=== PATIENT | male | born 2000 | race Caucasian/White ===

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

== ENCOUNTER 2019-02-02 04:12 | Emergency (ER) | payer BC, OTHER ==
--- NOTE | 2019-02-02 05:13 | CT ---
EXAM: CT Head Without Intravenous Contrast CLINICAL HISTORY: ITS.REASON CT Reason: head injury TECHNIQUE: Axial computed tomography images of the head/brain without intravenous contrast. CTDI is 49 mGy and DLP is 1119 mGy-cm. This CT exam was performed using one or more of the following dose reduction techniques: automated exposure control, adjustment of the mA and/or kV according to patient size, and/or use of iterative reconstruction technique. COMPARISON: No relevant prior studies available. FINDINGS: Brain: No hemorrhage or mass effect. Ventricles: No hydrocephalus. Bones/joints: Unremarkable. Soft tissues: Unremarkable. Sinuses: Completely opacified right maxillary sinus. Air-fluid level in the left maxillary sinus. Mild opacification of the right anterior ethmoid and right frontal sinus. Mastoid air cells: Clear. IMPRESSION: No acute hemorrhage, hydrocephalus, or mass effect. Severe maxillary sinus disease.
[2019-02-02] MEDS ORDERED: PENICILLIN VK 500MG STARTER 4 TAB BTL PO STA (06:28)
--- NOTE | 2019-02-02 06:35 | ED ---
ENT HPI - General Chief complaint: ENT Stated complaint: Head Injury/Sore Throat Time Seen by Provider: 02/02/19 04:37 Source: patient Mode of arrival: ambulatory Limitations: no limitations - History of Present Illness MD complaint: tooth pain, trauma/injury Onset/Timin -: days(s) Location: throat Severity: moderate Quality: burning, aching Consistency: constant Improves with: none Worsens with: swallowing Associated Symptoms: sore throat - Related Data Previous Rx's Medication Instructions Recorded Penicillin V Potassium [Pen Vee K] 500 mg PO QID #28 tablet 02/02/19 Allergies Allergy/AdvReac Type Severity Reaction Status Date / Time No Known Allergies Allergy Verified 02/02/19 04:20 Review of Systems ROS Statement: Those systems with pertinent positive or pertinent negative responses have been documented in the HPI. ROS Other: All systems not noted in ROS Statement are negative. Constitutional: Reports: fever. Denies: chills Eyes: Denies: eye pain ENT: Reports: throat pain Respiratory: Denies: cough, dyspnea Cardiovascular: Denies: chest pain, palpitations Gastrointestinal: Denies: abdominal pain, vomiting, diarrhea Genitourinary: Denies: dysuria, hematuria Musculoskeletal: Denies: back pain Skin: Denies: rash Neurological: Reports: headache. Denies: weakness, numbness Past Medical History Past Medical History: No Reported History History of Any Multi-Drug Resistant Organisms: None Reported Past Surgical History: No Surgical Hx Reported Past Psychological History: No Psychological Hx Reported Smoking Status: Current every day smoker Past Alcohol Use History: Rare Past Drug Use History: Marijuana General Exam Limitations: no limitations General appearance: alert, in no apparent distress Head exam: Present: atraumatic, normocephalic Eye exam: Present: normal appearance, PERRL, EOMI. Absent: scleral icterus, conjunctival injection ENT exam: Present: mucous membranes moist, other (there is injection of the pharynx. Moderate inflammation of the tonsils. Uvula is midline without edema. No exudate) Neck exam: Present: normal inspection, full ROM, lymphadenopathy. Absent: tenderness, meningismus Respiratory exam: Present: normal lung sounds bilaterally. Absent: respiratory distress, wheezes, rales, rhonchi, stridor Cardiovascular Exam: Present: regular rate, normal rhythm, normal heart sounds. Absent: systolic murmur, diastolic murmur, rubs, gallop GI/Abdominal exam: Present: soft. Absent: distended, tenderness, guarding, rigid, mass Extremities exam: Present: normal inspection, normal capillary refill. Absent: pedal edema, calf tenderness Back exam: Present: normal inspection. Absent: CVA tenderness (R), CVA tenderness (L) Neurological exam: Present: alert Skin exam: Present: warm, dry, intact, normal color. Absent: rash Course Vital Signs 02/02/19 04:18 Temperature 102.5 F H Pulse Rate 105 H Respiratory 20 Rate Blood Pressure 114/65 O2 Sat by Pulse 96 Oximetry Medical Decision Making - Lab Data Lab Results 02/02/19 Range/Units 05:11 Group A Strep Rapid Positive A (Negative) Disposition Clinical Impression: Strep pharyngitis, Head injury Disposition: HOME SELF-CARE Condition: Good Instructions (If sedation given, give patient instructions): Strep Throat (ED), Head Injury (ED) Prescriptions: Penicillin V Potassium [Pen Vee K] 500 mg PO QID #28 tablet Is patient prescribed a controlled substance at d/c from ED?: No Referrals: None,Stated [Primary Care Provider] - 1-2 days
[2019-02-02 06:36] VITALS: BP 135/76; PULSE 90; RESP 18; TEMP 99.8
== END 2019-02-02 06:36 | disposition home or self-care (01) ==
LOC: EC 04:12
DX: S09.90XA Unspecified injury of head, initial encounter (principal); J02.0 Streptococcal pharyngitis; F17.200 Nicotine dependence, unspecified, uncomplicated; K08.89 Other specified disorders of teeth and supporting structures; X58.XXXA Exposure to other specified factors, initial encounter; Y93.62 Activity, american flag or touch football
CPT/HCPCS: 70450; 87430; 99284

== ENCOUNTER 2019-07-31 18:57 | Emergency (ER) | payer BC, OTHER ==
--- NOTE | 2019-07-31 19:19 | XR ---
EXAMINATION TYPE: XR chest 2V DATE OF EXAM: 07/31/2019 COMPARISON: 06/25/2013 INDICATION: Chest pain, substernal TECHNIQUE: Frontal and lateral views of the chest are obtained. FINDINGS: The heart size is normal. The pulmonary vasculature is normal. The lungs are clear. IMPRESSION: 1. No acute pulmonary process.
[2019-07-31] MEDS ORDERED: SODIUM CHLORIDE 0.9% 1,000 ML IV STA (19:55)
--- NOTE | 2019-07-31 19:55 | ED ---
Chest Pain HPI - General Chief Complaint: Chest Pain Stated Complaint: Chest Pain Time Seen by Provider: 07/31/19 18:59 Source: patient, RN notes reviewed, old records reviewed Mode of arrival: EMS Limitations: no limitations - History of Present Illness Initial Comments: is a healthy 19-year-old male presents today for evaluation of chest pain. Nonspecific anterior shortness breath and anxiety. Patient presents from urgent care for evaluation. No travel history no sick contacts. no Cough congestion or trauma. Patient denies history of similar symptoms. No significant family history of heart disease. No high blood pressure or cholesterol no diabetes MD Complaint: chest pain -: hour(s) Onset: during rest, during exertion Pain Location: substernal, left chest Pain Radiation: LUE Severity: moderate Severity scale (1-10): 7 Quality: sharp Consistency: constant Improves With: nothing Worsens With: nothing Context: recent illness Anginal Symptoms: nausea, dyspnea Treatments Prior to Arrival: none - Related Data Home Medications Medication Instructions Recorded Confirmed No Known Home Medications 07/31/19 07/31/19 Allergies Allergy/AdvReac Type Severity Reaction Status Date / Time No Known Allergies Allergy Verified 07/31/19 20:14 Review of Systems ROS Statement: Those systems with pertinent positive or pertinent negative responses have been documented in the HPI. ROS Other: All systems not noted in ROS Statement are negative. EKG Findings - EKG Comments: EKG Findings:: EKG shows sinus rhythm of 76, MT 136, QRS 94, QTc 416 Past Medical History Past Medical History: No Reported History History of Any Multi-Drug Resistant Organisms: None Reported Past Surgical History: No Surgical Hx Reported Past Psychological History: No Psychological Hx Reported Smoking Status: Former smoker Past Alcohol Use History: Rare Past Drug Use History: Marijuana General Exam Limitations: no limitations General appearance: alert, in no apparent distress Head exam: Present: atraumatic, normocephalic, normal inspection Eye exam: Present: normal appearance, PERRL, EOMI. Absent: scleral icterus, conjunctival injection, periorbital swelling ENT exam: Present: normal exam, mucous membranes moist Neck exam: Present: normal inspection. Absent: tenderness, meningismus, lymphadenopathy Respiratory exam: Present: normal lung sounds bilaterally. Absent: respiratory distress, wheezes, rales, rhonchi, stridor Cardiovascular Exam: Present: regular rate, normal rhythm, normal heart sounds. Absent: systolic murmur, diastolic murmur, rubs, gallop, clicks GI/Abdominal exam: Present: soft, normal bowel sounds. Absent: distended, tenderness, guarding, rebound, rigid Extremities exam: Present: normal inspection, full ROM, normal capillary refill. Absent: tenderness, pedal edema, joint swelling, calf tenderness Back exam: Present: normal inspection Neurological exam: Present: alert, oriented X3, CN II-XII intact Psychiatric exam: Present: normal affect, normal mood Skin exam: Present: warm, dry, intact, normal color. Absent: rash Course Vital Signs 07/31/19 07/31/19 19:03 20:06 Temperature 99.2 F 97.5 F L Pulse Rate 88 61 Respiratory 18 20 Rate Blood Pressure 138/74 117/72 O2 Sat by Pulse 99 Oximetry - Reevaluation(s) Reevaluation #1: Medical records reviewed Patient's in no distress Chest Pain MDM - MDM 19 male to the ER with nonspecific atypical chest pain. Patient has normal studies here in the ER and can be discharged home feeling good with discharge Disposition Clinical Impression: Atypical chest pain, Chest pain Disposition: HOME SELF-CARE Condition: Good Instructions (If sedation given, give patient instructions): Chest Pain (ED), Costochondritis (ED) Is patient prescribed a controlled substance at d/c from ED?: No Referrals: None,Stated [Primary Care Provider] - 1-2 days
[2019-07-31 20:10] VITALS: BP 117/72; PULSE 61; RESP 20; TEMP 97.5
[2019-07-31 20:15] LABS: Basophils % (A) 0 %; Eosinophils # (A) 0.2 k/uL (0-0.7); Eosinophils % (A) 2 %; HCT 43.1 % (39.0-53.0); HGB 14.2 gm/dL (13.0-17.5); Lymphocytes # (A) 1.5 k/uL (1.0-4.8); Lymphocytes % (A) 20 %; MCH 28.6 pg (25.0-35.0); MCHC 32.9 g/dL (31.0-37.0); MCV 86.8 fL (80.0-100.0); Mean Platelet Volume 8.1; Monocytes # (A) 0.4 k/uL (0-1.0); Monocytes % (A) 5 %; Neutrophils # (A) 5.2 k/uL (1.3-7.7); Neutrophils % (A) 70 %; Platelet Count 298 k/uL (150-450); RBC 4.97 m/uL (4.30-5.90); RDW 12.4 % (11.5-15.5); WBC 7.3 k/uL (4.0-11.0)
[2019-07-31 20:25] LABS: ALT 12 U/L (4-49); AST 18 U/L (17-59); African American GFR (CKD) >90 (>60 ml/min/1.73 sqM); Albumin 4.6 g/dL (3.5-5.0); Alkaline Phosphatase 59 U/L (38-126); Anion Gap 4 mmol/L; Blood Urea Nitrogen 15 mg/dL (9-20); Calcium 9.6 mg/dL (8.4-10.2); Carbon Dioxide 28 mmol/L (22-30); Chloride 105 mmol/L (98-107); Glucose 90 mg/dL (74-99); Magnesium 1.9 mg/dL (1.6-2.3); Non-African American GFR(CKD) >90 (>60 ml/min/1.73 sqM); Potassium 4.3 mmol/L (3.5-5.1); Sodium 137 mmol/L (137-145); Total Bilirubin 0.5 mg/dL (0.2-1.3); Total Protein 7.7 g/dL (6.3-8.2)
[2019-07-31 20:28] LABS: D-Dimer <0.17 mg/L FEU (<0.60); Partial Thromboplastin Time 24.9 sec (22.0-30.0); Prothrombin Time 10.8 sec (9.0-12.0)
== END 2019-07-31 20:57 | disposition home or self-care (01) ==
LOC: EC 18:57
DX: R07.89 Other chest pain (principal); Z87.891 Personal history of nicotine dependence
CPT/HCPCS: 36415; 71046; 80053; 83690; 83735; 83880; 84484; 85025; 85379; 85610; 85730; 93005; 99285

== ENCOUNTER 2019-08-13 21:35 | Emergency (ER) | payer BC, OTHER ==
[2019-08-13 21:47] VITALS: RESP 18; TEMP 98
[2019-08-13] MEDS ORDERED: SODIUM CHLORIDE 0.9% 1,000 ML IV STA (22:25)
[2019-08-13] MEDS ORDERED: DICYCLOMINE 20 MG TAB PO STA (22:25)
--- NOTE | 2019-08-13 22:32 | ED ---
Abdominal Pain HPI - General Chief Complaint: Abdominal Pain Stated Complaint: Abd Pain Time Seen by Provider: 08/13/19 22:01 Source: patient Mode of arrival: ambulatory Limitations: no limitations - History of Present Illness Initial Comments: Patient is a 19-year-old male presenting to the emergency Department with complaints of abdominal pain has been going on for 1 week. He states he feels like it is getting worse and he decided to be seen today. He denies any recent fever, chills. He denies nausea, vomiting, diarrhea. He states she's been h aving intermittent constipation. He denies any urinary complaints. He denies any abdominal surgeries. He states he's been taking ibuprofen for the pain but feels like it is getting worse. He denies any coughing, shortness of breath, chest pain. He has no other complaints at this time. Upon arrival to the ER, his vitals are stable. - Related Data Previous Rx's Medication Instructions Recorded Dicyclomine [Bentyl] 20 mg PO QID PRN #20 tablet 08/13/19 Allergies Allergy/AdvReac Type Severity Reaction Status Date / Time No Known Allergies Allergy Verified 08/13/19 21:47 Review of Systems ROS Statement: Those systems with pertinent positive or pertinent negative responses have been documented in the HPI. ROS Other: All systems not noted in ROS Statement are negative. Past Medical History Past Medical History: No Reported History History of Any Multi-Drug Resistant Organisms: None Reported Past Surgical History: No Surgical Hx Reported Past Psychological History: No Psychological Hx Reported Smoking Status: Former smoker Past Alcohol Use History: Rare Past Drug Use History: Marijuana General Exam - General Exam Comments Initial Comments: GENERAL: Well-appearing, well-nourished and in no acute distress. HEAD: Atraumatic, normocephalic. EYES: Pupils equal round and reactive to light, extraocular movements intact, sclera anicteric, conjunctiva are normal. ENT: TMs normal, nares patent, oropharynx clear without exudates. Moist mucous membranes. NECK: Normal range of motion, supple without lymphadenopathy or JVD. LUNGS: Breath sounds clear to auscultation bilaterally and equal. No wheezes rales or rhonchi. HEART: Regular rate and rhythm without murmurs, rubs or gallops. ABDOMEN: Very mild generalized abdominal pain with palpation. Soft, normoactive bowel sounds. No guarding, no rebound. No masses appreciated. : Deferred EXTREMITIES: Normal range of motion, no pitting or edema. No clubbing or cyanosis. NEUROLOGICAL: Normal speech, normal gait. PSYCH: Normal mood, normal affect. SKIN: Warm, Dry, normal turgor, no rashes or lesions noted. Limitations: no limitations Course Vital Signs 08/13/19 08/13/19 21:44 23:46 Temperature 98.0 F Pulse Rate 81 66 Respiratory 18 18 Rate Blood Pressure 126/77 106/79 O2 Sat by Pulse 99 98 Oximetry Medical Decision Making - Medical Decision Making Patient is a 19-year-old healthy male here for generalized abdominal discomfort times one week. Vitals are stable. Exam reveals generalized abdominal tenderness. KUB shows nonacute abdomen. Lab work is unremarkable. Urine shows no signs of infection. Patient did receive fluids and Bentall he states he feels improvement. He is stable for discharge. He can follow up with his PCP. He is in agreement this plan of care. Return parameters were discussed with the patient and he verbalized understanding. Case discussed with Dr. Maloney. - Lab Data Result diagrams: 08/13/19 23:00 08/13/19 23:00 Lab Results 08/13/19 08/13/19 08/13/19 Range/Units 23:00 23:00 23:00 WBC 7.1 (4.0-11.0) k/uL RBC 4.79 (4.30-5.90) m/uL Hgb 13.7 (13.0-17.5) gm/dL Hct 41.9 (39.0-53.0) % MCV 87.6 (80.0-100.0) fL MCH 28.5 (25.0-35.0) pg MCHC 32.6 (31.0-37.0) g/dL RDW 12.3 (11.5-15.5) % Plt Count 264 (150-450) k/uL Neutrophils % 65 % Lymphocytes % 25 % Monocytes % 5 % Eosinophils % 2 % Basophils % 1 % Neutrophils # 4.6 (1.3-7.7) k/uL Lymphocytes # 1.8 (1.0-4.8) k/uL Monocytes # 0.4 (0-1.0) k/uL Eosinophils # 0.2 (0-0.7) k/uL Basophils # 0.0 (0-0.2) k/uL Sodium 137 (137-145) mmol/L Potassium 4.5 (3.5-5.1) mmol/L Chloride 103 (98-107) mmol/L Carbon Dioxide 27 (22-30) mmol/L Anion Gap 7 mmol/L BUN 17 (9-20) mg/dL Creatinine 0.77 (0.66-1.25) mg/dL Est GFR (CKD-EPI)AfAm >90 (>60 ml/min/1.73 sqM) Est GFR (CKD-EPI)NonAf >90 (>60 ml/min/1.73 sqM) Glucose 94 (74-99) mg/dL Calcium 9.5 (8.4-10.2) mg/dL Total Bilirubin 0.3 (0.2-1.3) mg/dL AST 15 L (17-59) U/L ALT 11 (4-49) U/L Alkaline Phosphatase 51 (38-126) U/L Total Protein 7.6 (6.3-8.2) g/dL Albumin 4.5 (3.5-5.0) g/dL Urine Color Yellow Urine Appearance Cloudy (Clear) Urine pH 7.5 (5.0-8.0) Ur Specific [place] 1.018 (1.001-1.035) Urine Protein Negative (Negative) Urine Glucose (UA) Negative (Negative) Urine Ketones Negative (Negative) Urine Blood Negative (Negative) Urine Nitrite Negative (Negative) Urine Bilirubin Negative (Negative) Urine Urobilinogen <2.0 (<2.0) mg/dL Ur Leukocyte Esterase Negative (Negative) Urine WBC 1 (0-5) /hpf Amorphous Sediment Rare H (None) /hpf Urine Bacteria Rare H (None) /hpf Urine Mucus Rare H (None) /hpf Disposition Clinical Impression: Abdominal pain Disposition: HOME SELF-CARE Condition: Stable Instructions (If sedation given, give patient instructions): Abdominal Pain (ED) Additional Instructions: Please return to the Emergency Department if symptoms worsen or any other concerns. May take Bentyl as needed for abdominal discomfort. Follow up with PCP. Prescriptions: Dicyclomine [Bentyl] 20 mg PO QID PRN #20 tablet PRN Reason: Abdominal Distention Is patient prescribed a controlled substance at d/c from ED?: No Referrals: None,Stated [Primary Care Provider] - 1-2 days
--- NOTE | 2019-08-13 22:49 | XR ---
EXAMINATION TYPE: XR KUB DATE OF EXAM: 08/13/2019 10:36 PM CLINICAL HISTORY: Generalized abdominal pain. TECHNIQUE: Two Upright KUB images of the abdomen are obtained. COMPARISON: None. FINDINGS: Scattered gas is seen in non-distended stomach and scattered small bowel loops. Gas and fec al material is seen in non-distended colon. There is no visceromegaly, pneumoperitoneum, or abnormal calcification appreciated. The lung bases are clear. 6 lumbar type vertebra incidentally noted. IMPRESSION: Overall nonobstructive bowel gas pattern.
[2019-08-13 23:15] LABS: Basophils % (A) 1 %; Eosinophils # (A) 0.2 k/uL (0-0.7); Eosinophils % (A) 2 %; HCT 41.9 % (39.0-53.0); HGB 13.7 gm/dL (13.0-17.5); Lymphocytes # (A) 1.8 k/uL (1.0-4.8); Lymphocytes % (A) 25 %; MCH 28.5 pg (25.0-35.0); MCHC 32.6 g/dL (31.0-37.0); MCV 87.6 fL (80.0-100.0); Mean Platelet Volume 7.7; Monocytes # (A) 0.4 k/uL (0-1.0); Monocytes % (A) 5 %; Neutrophils # (A) 4.6 k/uL (1.3-7.7); Neutrophils % (A) 65 %; Platelet Count 264 k/uL (150-450); RBC 4.79 m/uL (4.30-5.90); RDW 12.3 % (11.5-15.5); WBC 7.1 k/uL (4.0-11.0)
[2019-08-13 23:21] LABS: ALT 11 U/L (4-49); AST 15 U/L (17-59); African American GFR (CKD) >90 (>60 ml/min/1.73 sqM); Albumin 4.5 g/dL (3.5-5.0); Alkaline Phosphatase 51 U/L (38-126); Anion Gap 7 mmol/L; Blood Urea Nitrogen 17 mg/dL (9-20); Calcium 9.5 mg/dL (8.4-10.2); Carbon Dioxide 27 mmol/L (22-30); Chloride 103 mmol/L (98-107); Glucose 94 mg/dL (74-99); Non-African American GFR(CKD) >90 (>60 ml/min/1.73 sqM); Potassium 4.5 mmol/L (3.5-5.1); Sodium 137 mmol/L (137-145); Total Bilirubin 0.3 mg/dL (0.2-1.3); Total Protein 7.6 g/dL (6.3-8.2)
[2019-08-13 23:22] LABS: Amorphous Sediment,Urine Rare /hpf; Appearance,Urine Cloudy (Clear); Bacteria,Urine Rare /hpf; Bilirubin,Urine Negative (Negative); Blood,Urine Negative (Negative); Color,Urine Yellow; Glucose,Urine (UA) Negative (Negative); Ketones,Urine Negative (Negative); Leukocyte Esterase,Urine Negative (Negative); Mucus,Urine Rare /hpf; Nitrite,Urine Negative (Negative); PH, Urine 7.5 (5.0-8.0); Protein,Urine Negative (Negative); Specific Gravity,Urine 1.018 (1.001-1.035); Urobilinogen,Urine <2.0 mg/dL (<2.0); WBC,Urine 1 /hpf (0-5)
[2019-08-14 00:07] VITALS: BP 106/79; PULSE 66
== END 2019-08-13 23:46 | disposition home or self-care (01) ==
LOC: EC 21:35
DX: R10.9 Unspecified abdominal pain (principal); R10.817 Generalized abdominal tenderness; Z87.891 Personal history of nicotine dependence
CPT/HCPCS: 36415; 74018; 80053; 81001; 85025; 99284

== ENCOUNTER 2020-12-06 17:46 | Emergency (ER) | payer OTHER ==
[2020-12-06 18:40] VITALS: BP 119/71; PULSE 81; RESP 18; TEMP 98.6
[2020-12-06] MEDS ORDERED: HYDROcodone/APAP 5-325MG 1 EACH TAB PO STA (19:26)
--- NOTE | 2020-12-06 20:14 | XR ---
EXAMINATION TYPE: XR chest 2V DATE OF EXAM: 12/06/2020 COMPARISON: 07/31/2019 HISTORY: Chest pain TECHNIQUE: 2 views FINDINGS: Heart and mediastinum are normal. Lungs are clear. Diaphragm is normal. Bony thorax is inta ct. IMPRESSION: Normal chest. No change.
--- NOTE | 2020-12-06 20:15 | XR ---
EXAMINATION TYPE: XR KUB DATE OF EXAM: 12/06/2020 COMPARISON: 08/13/2019 HISTORY: Pain TECHNIQUE: 2 views upright FINDINGS: Gas pattern is normal. There is no sign of intestinal obstruction or pneumoperitoneum. Feca l pattern is normal. Lung bases are clear. There no pathologic calcifications. IMPRESSION: Nonacute abdomen. No change.
--- NOTE | 2020-12-06 20:21 | ED ---
Abdominal Pain HPI - General Source: patient, family, RN notes reviewed Mode of arrival: ambulatory Limitations: no limitations <Luis Cardoza - Last Filed: 12/06/20 20:34> <Courtney Adams - Last Filed: 12/10/20 14:36> - General Chief Complaint: Abdominal Pain Stated Complaint: back pain Time Seen by Provider: 12/06/20 19:03 - History of Present Illness Initial Comments: This a 20-year-old male presents emergency department with chief complaint of left-sided abdominal, flank, rib pain. Patient states that hurts to deep inspiration twisting bending denies any direct trauma but states that it feels like he pulled a muscle. No difficulty urinating no nausea vomiting no other complaints. (Luis Cardoza) - Related Data Previous Rx's Medication Instructions Recorded Cyclobenzaprine [Flexeril] 10 mg PO TID PRN #15 tab 12/06/20 Ibuprofen [Motrin] 600 mg PO Q8HR PRN #20 tab 12/06/20 Allergies Allergy/AdvReac Type Severity Reaction Status Date / Time No Known Allergies Allergy Verified 12/06/20 20:17 Review of Systems ROS Other: All systems not noted in ROS Statement are negative. <Luis Cardoza - Last Filed: 12/06/20 20:34> ROS Other: All systems not noted in ROS Statement are negative. <Courtney Adams - Last Filed: 12/10/20 14:36> ROS Statement: Those systems with pertinent positive or pertinent negative responses have been documented in the HPI. Past Medical History Past Medical History: No Reported History History of Any Multi-Drug Resistant Organisms: None Reported Past Surgical History: No Surgical Hx Reported Past Psychological History: No Psychological Hx Reported Past Alcohol Use History: Rare Past Drug Use History: Marijuana <Luis Cardoza - Last Filed: 12/06/20 20:34> General Exam General appearance: alert, in no apparent distress Head exam: Present: atraumatic, normocephalic, normal inspection Eye exam: Present: normal appearance, PERRL, EOMI. Absent: scleral icterus, conjunctival injection, periorbital swelling ENT exam: Present: normal exam, mucous membranes moist Neck exam: Present: normal inspection, full ROM. Absent: tenderness, meningismus, lymphadenopathy Respiratory exam: Present: normal lung sounds bilaterally, chest wall tenderness. Absent: respiratory distress, wheezes, rales, rhonchi, stridor Cardiovascular Exam: Present: regular rate, normal rhythm, normal heart sounds. Absent: systolic murmur, diastolic murmur, rubs, gallop, clicks GI/Abdominal exam: Present: soft, normal bowel sounds. Absent: distended, tenderness, guarding, rebound, rigid <Luis Cardoza - Last Filed: 12/06/20 20:34> Course Vital Signs 12/06/20 18:37 Temperature 98.6 F Pulse Rate 81 Respiratory 18 Rate Blood Pressure 119/71 O2 Sat by Pulse 97 Oximetry Medical Decision Making <Luis Cardoza - Last Filed: 12/06/20 20:34> <Courtney Adams - Last Filed: 12/10/20 14:36> - Medical Decision Making X-rays urinalysis unremarkable. Patient most likely has left flank strain. Patient be discharged discharged return parameters discussed. (Luis Cardoza) I was available for consultation in the emergency department. The history and physical exam were done by the midlevel provider. I was consulted for this patients care. I reviewed the case with the midlevel provider and based on their presentation of the patient, I agree with the assessment, medical decision making and plan of care as documented. Chart was dictated using [id number] dictation software. Attempts were made to correct any dictation errors however some typographical errors may persist. Patient was seen during a national state of emergency due to the Covid-19 pandemic. (Courtney Adams) - Lab Data Lab Results 12/06/20 Range/Units 20:23 Urine Color Yellow Urine Appearance Clear (Clear) Urine pH 5.5 (5.0-8.0) Ur Specific [place] 1.026 (1.001-1.035) Urine Protein Negative (Negative) Urine Glucose (UA) Negative (Negative) Urine Ketones Negative (Negative) Urine Blood Negative (Negative) Urine Nitrite Negative (Negative) Urine Bilirubin Negative (Negative) Urine Urobilinogen <2.0 (<2.0) mg/dL Ur Leukocyte Esterase Negative (Negative) Disposition Is patient prescribed a controlled substance at d/c from ED?: No Time of Disposition: 20:36 <Luis Cardoza - Last Filed: 12/06/20 20:34> <Courtney Adams - Last Filed: 12/10/20 14:36> Clinical Impression: Left flank pain, Muscle strain of chest wall Disposition: HOME SELF-CARE Condition: Stable Instructions (If sedation given, give patient instructions): Flank Pain (ED) Additional Instructions: Please return to the Emergency Department if symptoms worsen or any other concerns. Prescriptions: Cyclobenzaprine [Flexeril] 10 mg PO TID PRN #15 tab PRN Reason: Muscle Spasm Ibuprofen [Motrin] 600 mg PO Q8HR PRN #20 tab PRN Reason: Pain Referrals: None,Stated [Primary Care Provider] - 1-2 days
[2020-12-06 20:32] LABS: Appearance,Urine Clear (Clear); Bilirubin,Urine Negative (Negative); Blood,Urine Negative (Negative); Color,Urine Yellow; Glucose,Urine (UA) Negative (Negative); Ketones,Urine Negative (Negative); Leukocyte Esterase,Urine Negative (Negative); Nitrite,Urine Negative (Negative); PH, Urine 5.5 (5.0-8.0); Protein,Urine Negative (Negative); Specific Gravity,Urine 1.026 (1.001-1.035); Urobilinogen,Urine <2.0 mg/dL (<2.0)
[2020-12-06] MEDS ORDERED: ACET/COD 300 MG/30 MG STARTER PACK 6 TAB BTL PO STA (20:36)
== END 2020-12-06 20:52 | disposition home or self-care (01) ==
LOC: EC 17:46
DX: S29.011A Strain of muscle and tendon of front wall of thorax, initial encounter (principal); R10.9 Unspecified abdominal pain; X50.1XXA Overexertion from prolonged static or awkward postures, initial encounter
CPT/HCPCS: 71046; 74018; 81003; 99284

== ENCOUNTER 2021-02-26 03:59 | Emergency (ER) | payer OTHER ==
[2021-02-26 04:04] VITALS: BP 127/81; PULSE 108; RESP 24; TEMP 97.8
[2021-02-26] MEDS ORDERED: SODIUM CHLORIDE 0.9% 500 ML 500 ML IV STA (04:34)
[2021-02-26] MEDS ORDERED: diphenhydrAMINE 50 MG/ML 1 ML VIAL IVP STA (04:34)
[2021-02-26] MEDS ORDERED: METOCLOPRAMIDE 5 MG/ML 2 ML VIAL IVP STA (04:34)
--- NOTE | 2021-02-26 04:38 | ED ---
Headache HPI - General Chief Complaint: Headache Stated Complaint: Headache Time Seen by Provider: 02/26/21 04:18 Mode of arrival: ambulatory Limitations: no limitations - History of Present Illness MD Complaint: headache Onset/Timin -: hour(s) Onset Description: gradual Location: right, frontal Severity: severe Quality: throbbing, worst headache of life Consistency: constant Improves With: nothing Worsens With: none Context: occurred at rest Treatments Prior to Arrival: none - Related Data Previous Rx's Medication Instructions Recorded Cyclobenzaprine [Flexeril] 10 mg PO TID PRN #15 tab 12/06/20 Ibuprofen [Motrin] 600 mg PO Q8HR PRN #20 tab 12/06/20 Amoxicillin/Potassium Clav 1 tab PO Q12HR 1 Days #14 tab 02/26/21 [Augmentin 875-125 Tablet] Fluticasone Nasal [place] [Flonase 1 spray EA NOSTRIL DAILY #16 gm 02/26/21 Nasal [place]] Allergies Allergy/AdvReac Type Severity Reaction Status Date / Time No Known Allergies Allergy Verified 02/26/21 04:04 Review of Systems ROS Statement: Those systems with pertinent positive or pertinent negative responses have been documented in the HPI. ROS Other: All systems not noted in ROS Statement are negative. Constitutional: Denies: fever, chills, weakness Eyes: Denies: eye pain, vision change Respiratory: Denies: cough, dyspnea Cardiovascular: Denies: chest pain, syncope Gastrointestinal: Reports: nausea. Denies: abdominal pain, vomiting Musculoskeletal: Denies: back pain Skin: Denies: rash Neurological: Reports: headache. Denies: weakness, numbness, confusion Past Medical History Past Medical History: No Reported History History of Any Multi-Drug Resistant Organisms: None Reported Past Surgical History: No Surgical Hx Reported Past Psychological History: No Psychological Hx Reported Smoking Status: Former smoker Past Alcohol Use History: Rare Past Drug Use History: Marijuana General Exam Limitations: no limitations General appearance: alert, in no apparent distress Head exam: Present: atraumatic, normocephalic Eye exam: Present: normal appearance, PERRL, EOMI. Absent: scleral icterus, conjunctival injection, nystagmus ENT exam: Present: normal oropharynx, mucous membranes moist Neck exam: Present: normal inspection, full ROM. Absent: meningismus Respiratory exam: Present: normal lung sounds bilaterally. Absent: respiratory distress, wheezes, rales, rhonchi, stridor Cardiovascular Exam: Present: regular rate, normal rhythm, normal heart sounds. Absent: systolic murmur, diastolic murmur, rubs, gallop Neurological exam: Present: alert, oriented X3, CN II-XII intact. Absent: motor sensory deficit Skin exam: Present: warm, dry, intact, normal color. Absent: rash Course Vital Signs 02/26/21 04:00 Temperature 97.8 F Pulse Rate 108 H Respiratory 24 Rate Blood Pressure 127/81 O2 Sat by Pulse 97 Oximetry Medical Decision Making - Lab Data Lab Results 02/26/21 Range/Units 04:10 Coronavirus (PCR) Not Detected (Not Detectd) Disposition Clinical Impression: Sinusitis Disposition: HOME SELF-CARE Condition: Good Instructions (If sedation given, give patient instructions): Sinusitis (ED) Prescriptions: Amoxicillin/Potassium Clav [Augmentin 875-125 Tablet] 1 tab PO Q12HR 1 Days #14 tab Fluticasone Nasal [place] [Flonase Nasal [place]] 1 spray EA NOSTRIL DAILY #16 gm Is patient prescribed a controlled substance at d/c from ED?: No Referrals: None,Stated [Primary Care Provider] - 1-2 days
--- NOTE | 2021-02-26 05:16 | CT ---
EXAMINATION TYPE: CT brain wo con DATE OF EXAM: 02/26/2021 COMPARISON: 02/02/2019 HISTORY: headache CT DLP: 1141.4 mGycm Automated exposure control for dose reduction was used. Ventricles have normal size. There is no mass effect nor midline shift. There is no sign of intracran ial hemorrhage. The calvarium is intact. There is mucosal thickening in the maxillary and sphenoid et hmoid and frontal sinuses. Skull base is intact. IMPRESSION: Negative CT scan of the brain. No change compared to old exam. Pansinusitis. Sinusitis slightly worse than old exam.
[2021-02-26] MEDS ORDERED: KETOROLAC 15 MG/ML 1 ML VIAL IVP STA (05:21)
== END 2021-02-26 06:12 | disposition home or self-care (01) ==
LOC: EC 03:59
DX: J32.9 Chronic sinusitis, unspecified (principal); Z20.822 Contact with and (suspected) exposure to COVID-19; Z87.891 Personal history of nicotine dependence
CPT/HCPCS: 87635; 70450; 99284; 96374; 96375; J1200; J2765; J1885

== ENCOUNTER 2023-08-29 15:40 | Emergency (ER) | payer OTHER ==
--- NOTE | 2023-08-29 15:52 | ED ---
Wound/Laceration HPI - General Source: patient, RN notes reviewed Mode of arrival: ambulatory Limitations: no limitations <Alicia Benton - Last Filed: 08/29/23 15:51> - General Source: RN notes reviewed <Brittany Lam - Last Filed: 08/29/23 17:46> - General Stated Complaint: R Finger Laceration Time Seen by Provider: 08/29/23 15:51 - History of Present Illness Initial Comments: Quick note: 23-year-old male presented to the ER with chief complaint of laceration. 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 Tetanus status unknown. No other injuries. (Alicia Benton) 23-year-old male presenting to the ER with chief complaint of laceration. States he was in his car and accidentally sliced his right middle finger against a anastasiya blade. Reports this happened about 1 hour prior to arrival. No blunt injury or trauma. Reports he only wants a tetanus shot and then would like to leave. Denies blood thinner (Brittany Lam) - Related Data Previous Rx's Medication Instructions Recorded Cyclobenzaprine [Flexeril] 10 mg PO TID PRN #15 tab 12/06/20 Ibuprofen [Motrin] 600 mg PO Q8HR PRN #20 tab 12/06/20 Amoxicillin/Potassium Clav 1 tab PO Q12HR 1 Days #14 tab 02/26/21 [Augmentin 875-125 Tablet] Fluticasone Nasal [place] [Flonase 1 spray EA NOSTRIL DAILY #16 gm 02/26/21 Nasal [place]] Allergies Allergy/AdvReac Type Severity Reaction Status Date / Time No Known Allergies Allergy Verified 08/29/23 15:51 Review of Systems ROS Other: All systems not noted in ROS Statement are negative. <Alicia Benton - Last Filed: 08/29/23 15:51> ROS Other: All systems not noted in ROS Statement are negative. <Brittany Lam - Last Filed: 08/29/23 17:46> ROS Statement: Those systems with pertinent positive or pertinent negative responses have been documented in the HPI. Past Medical History Past Medical History: No Reported History History of Any Multi-Drug Resistant Organisms: None Reported Past Surgical History: No Surgical Hx Reported Past Psychological History: No Psychological Hx Reported Smoking Status: Former smoker Past Alcohol Use History: Rare Past Drug Use History: Marijuana <Alicia Benton - Last Filed: 08/29/23 15:51> General Exam Limitations: no limitations <Alicia Benton - Last Filed: 08/29/23 15:51> General appearance: alert, in no apparent distress Respiratory exam: Present: normal lung sounds bilaterally. Absent: respiratory distress, wheezes, rales, rhonchi, stridor Cardiovascular Exam: Present: regular rate, normal rhythm, normal heart sounds. Absent: systolic murmur, diastolic murmur, rubs, gallop, clicks Right Forearm Wrist exam: Present: normal inspection, full ROM. Absent: tenderness, swelling Hand Wrist exam: Present: full ROM. Absent: normal inspection (2 cm superficial linear laceration present on distal aspect of third right digit. No surrounding erythema, no active bleeding. Cap refill less than 2 seconds. Sensation intact. Full range of motion of PIP and DIP.), tenderness, swelling Vascular: Absent: vascular compromise <Brittany Lam - Last Filed: 08/29/23 17:46> - General Exam Comments Initial Comments: Visual Physical Exam Vital signs reviewed General: Well-appearing, nontoxic, no acute distress. Head: Normocephalic, atraumatic Eyes: PERRLA, EOMI ENT: Airway patent Chest: Nonlabored breathing Skin: No visual rash, normal skin tone, laceration to right distal end of third digit. No active bleeding. Neuro: Alert and oriented 3 Musculoskeletal: No gross abnormalities (Alicia Benton) Course Vital Signs 08/29/23 15:45 Temperature 99.0 F Pulse Rate 93 Respiratory 16 Rate Blood Pressure 132/74 O2 Sat by Pulse 97 Oximetry Procedures - Laceration Laceration #1 Consent Obtained: verbal consent Indication: laceration Site: hand Size (cm): 2 Description: linear Depth: simple, single layer Pre-repair: wound explored, irrigated extensively, deep structures intact Patient Tolerated Procedure: well, no complications <Brittany Lam - Last Filed: 08/29/23 17:46> - Laceration Laceration #1 Additional Comments: Wound irrigated. Skin adhesive and Steri-Strips applied. Neurovascularly intact status post procedure. (Brittany Lam) Medical Decision Making <Alicia Benton - Last Filed: 08/29/23 15:51> <Brittany Lam - Last Filed: 08/29/23 17:46> - Medical Decision Making I performed the quick note portion of this chart. Electronically signed by Alicia Benton PA-C (Alicia Benton) Was pt. sent in by a medical professional or institution ([facility] Arreguin, [facility], urgent care, hospital, or fpc...) When possible be specific @ -No Did you speak to anyone other than the patient for history (EMS, parent, family, police, friend...)? What history was obtained from this source @ -No Did you review nursing and triage notes (agree or disagree)? Why? @ -I reviewed and agree with nursing and triage notes Were old charts reviewed (outside hosp., previous admission, EMS record, old EKG, old radiological studies, urgent care reports/EKG's, fpc records)? Report findings @ -No old charts were reviewed Differential Diagnosis (chest pain, altered mental status, abdominal pain women, abdominal pain men, vaginal bleeding, weakness, fever, dyspnea, syncope, hea dache, dizziness, GI bleed, back pain, seizure, CVA, palpatations, mental health, musculoskeletal)? @ -Laceration, cellulitis, abscess, abrasion, fracture EKG interpreted by me (3pts min.). @ -None X-rays interpreted by me (1pt min.). @ -None done CT interpreted by me (1pt min.). @ -None done U/S interpreted by me (1pt. min.). @ -None done What testing was considered but not performed or refused? (CT, X-rays, U/S, labs)? Why? @ -Patient refuses x-ray today and states he feels as though he did not fracture his finger, he states he only wants a tetanus injection and then he would like to leave. What meds were considered but not given or refused? Why? @ -None Did you discuss the management of the patient with other professionals (professionals i.e. J[facility]E Arreguin, [facility], lab, RT, psych nurse, social studies teacher, mail examiner, teacher, aoc airspace control officer, egg caser)? Give summary @ -No Was smoking cessation discussed for >3mins.? @ -No Was critical care preformed (if so, how long)? @ -No Were there social determinants of health that impacted care today? How? (Homelessness, low income, unemployed, alcoholism, drug addiction, transportation, low edu. Level, literacy, decrease access to med. care, fpc, rehab)? @ -No Was there de-escalation of care discussed even if they declined (Discuss DNR or withdrawal of care, Hospice)? DNR status @ -No What co-morbidities impacted this encounter? (DM, HTN, Smoking, COPD, CAD, Cancer, CVA, ARF, Chemo, Hep., AIDS, mental health diagnosis, sleep apnea, morbid obesity)? @ -None Was patient admitted / discharged? Hospital course, mention meds given and route, prescriptions, significant lab abnormalities, going to OR and other pertinent info. @ -Patient was discharged. Patient was seen and evaluated for right third digit laceration 1 hour prior to arrival. Vitals are stable, examination reveals 2 cm linear, superficial laceration on distal aspect of right third digit. Patient is neurovascularly intact. Wound is irrigated, skin adhesive and Steri-Strips applied. Sutures not indicated at this time. Wound care discussed in detail. Strict return/alarm symptoms discussed with patient and patient shows understanding and agrees to plan. Tetanus updated. Patient discharged in stable condition. Case discussed with Dr. Issa Undiagnosed new problem with uncertain prognosis? @ -No Drug Therapy requiring intensive monitoring for toxicity (Heparin, Nitro, Insulin, Cardizem)? @ -No Were any procedures done? @ -Laceration irrigated and skin adhesive/Steri-Strips applied Diagnosis/symptom? @ -Right third digit laceration Acute, or Chronic, or Acute on Chronic? @ -Acute Uncomplicated (without systemic symptoms) or Complicated (systemic symptoms)? @ -Uncomplicated Side effects of treatment? @ -No Exacerbation, Progression, or Severe Exacerbation? @ -No Poses a threat to life or bodily function? How? (Chest pain, USA, MA, pneumonia, PE, COPD, DKA, ARF, appy, cholecystitis, CVA, Diverticulitis, Homicidal, Suicidal, threat to staff... and all critical care pts) @ -No (Brittany Lam) Disposition <Alicia Benton - Last Filed: 08/29/23 15:51> Is patient prescribed a controlled substance at d/c from ED?: No Time of Disposition: 17:39 <Brittany Lam - Last Filed: 08/29/23 17:46> Clinical Impression: Laceration of right middle finger Disposition: HOME SELF-CARE Condition: Stable Instructions (If sedation given, give patient instructions): Finger Laceration (ED) Additional Instructions: Please return to the Emergency Department if symptoms worsen or any other concerns. Referrals: None,Stated [Primary Care Provider] - 1-2 days
[2023-08-29 15:59] VITALS: BP 132/74; PULSE 93; RESP 16; TEMP 99
[2023-08-29] MEDS: DIPH,PERTUS(ACELL)TETVAC-LF 0.5 ML VIAL IM ONE (17:59)
[2023-08-29] MEDS: LIDOCAINE 1% INJ 10MG/ML (20 ML MDV) SQ ONE (18:00)
== END 2023-08-29 18:33 | disposition home or self-care (01) ==
LOC: EC 15:40
DX: S61.212A Laceration without foreign body of right middle finger without damage to nail, initial encounter (principal); Z87.891 Personal history of nicotine dependence; Z23 Encounter for immunization; W26.8XXA Contact with other sharp object(s), not elsewhere classified, initial encounter
CPT/HCPCS: 90471; 90715; 96372; 99282

== ENCOUNTER 2023-09-27 13:11 | Emergency (ER) | payer OTHER ==
[2023-09-27 13:15] VITALS: RESP 18; TEMP 98
--- NOTE | 2023-09-27 13:33 | ED ---
Wound/Laceration HPI - General Source: patient, RN notes reviewed Mode of arrival: ambulatory Limitations: no limitations <Luis Cardoza - Last Filed: 09/27/23 13:33> - General Source: RN notes reviewed <Brittany Lam - Last Filed: 09/27/23 16:19> - General Chief Complaint: Wound/Laceration Stated Complaint: Left finger injury Time Seen by Provider: 09/27/23 13:21 - History of Present Illness Initial Comments: Quick [id number] male presents emergency department with complaint of left hand middle finger laceration. Patient states his tetanus is up-to-date last month. Patient states bleeding is controlled (Luis Cardoza) 23-year-old male presenting to the ER with chief complaint of laceration of left middle finger. 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 Tetanus is up-to-date from last month. Bleeding is controlled. Denies numbness or tingling. Denies blood thinners. (Brittany Lam) - Related Data Previous Rx's Medication Instructions Recorded Cyclobenzaprine [Flexeril] 10 mg PO TID PRN #15 tab 12/06/20 Ibuprofen [Motrin] 600 mg PO Q8HR PRN #20 tab 12/06/20 Amoxicillin/Potassium Clav 1 tab PO Q12HR 1 Days #14 tab 02/26/21 [Augmentin 875-125 Tablet] Fluticasone Nasal [place] [Flonase 1 spray EA NOSTRIL DAILY #16 gm 02/26/21 Nasal [place]] Cephalexin [Keflex] 500 mg PO Q12HR 5 Days #10 cap 09/27/23 Allergies Allergy/AdvReac Type Severity Reaction Status Date / Time No Known Allergies Allergy Verified 09/27/23 13:14 Review of Systems ROS Other: All systems not noted in ROS Statement are negative. <Luis Cardoza - Last Filed: 09/27/23 13:33> ROS Other: All systems not noted in ROS Statement are negative. <Brittany Lam - Last Filed: 09/27/23 16:19> ROS Statement: Those systems with pertinent positive or pertinent negative responses have been documented in the HPI. Past Medical History Past Medical History: No Reported History History of Any Multi-Drug Resistant Organisms: None Reported Past Surgical History: No Surgical Hx Reported Past Psychological History: No Psychological Hx Reported Smoking Status: Former smoker Past Alcohol Use History: Rare Past Drug Use History: Marijuana <Luis Cardoza - Last Filed: 09/27/23 13:33> General Exam Limitations: no limitations <Luis Cardoza - Last Filed: 09/27/23 13:33> General appearance: alert, in no apparent distress Head exam: Present: atraumatic, normocephalic, normal inspection Left Forearm Wrist exam: Present: normal inspection, full ROM. Absent: tenderness, swelling Hand Wrist exam: Present: full ROM, laceration. Absent: tenderness, swelling (2 cm laceration on ventral distal aspect of third digit of left hand. Full range of motion of DIP and PIP. Does not cross joint lines. Cap refill less than 2 seconds. Full sensation in distal aspect of digit) Psychiatric exam: Present: normal affect, normal mood Skin exam: Present: warm, dry, intact, normal color. Absent: rash <Brittany Lam - Last Filed: 09/27/23 16:19> - General Exam Comments Initial Comments: Visual Physical Exam Vital signs reviewed General: Well-appearing, nontoxic, no acute distress. Head: Normocephalic, atraumatic Eyes: PERRLA, EOMI ENT: Airway patent Chest: Nonlabored breathing Skin: No visual rash, normal skin tone Neuro: Alert and oriented 3 Musculoskeletal: No gross abnormalities (Luis Cardoza) Course Vital Signs 09/27/23 09/27/23 13:13 14:55 Temperature 98 F 98 F Pulse Rate 85 80 Respiratory 18 18 Rate Blood Pressure 125/68 122/86 O2 Sat by Pulse 99 99 Oximetry Procedures - Laceration Laceration #1 Consent Obtained: verbal consent Indication: laceration Site: upper extremity Size (cm): 2 Description: linear Depth: simple, single layer Pre-repair: wound explored, irrigated extensively, deep structures intact Patient Tolerated Procedure: well, no complications <Brittany Lam - Last Filed: 09/27/23 16:19> - Laceration Laceration #1 Additional Comments: Wound irrigated thoroughly. Skin adhesive and Steri-Strips applied. Hemostasis achieved. neurovascularly intact status post procedure (Brittany Lam) Medical Decision Making <Luis Cardoza - Last Filed: 09/27/23 13:33> <Brittany Lam - Last Filed: 09/27/23 16:19> - Medical Decision Making I completed the quick note portion of this chart signed Luis Cardoza PA-C (Luis Cardoza) Was pt. sent in by a medical professional or institution (, [facility], WAREHOUSE DELIVERY MANAGER, urgent care, hospital, or fci...) When possible be specific @ -No Did you speak to anyone other than the patient for history (EMS, parent, family, police, friend...)? What history was obtained from this source @ -No Did you review nursing and triage notes (agree or disagree)? Why? @ -I reviewed and agree with nursing and triage notes Were old charts reviewed (outside hosp., previous admission, EMS record, old EK G, old radiological studies, urgent care reports/EKG's, fci records)? Report findings @ -No old charts were reviewed Differential Diagnosis (chest pain, altered mental status, abdominal pain women, abdominal pain men, vaginal bleeding, weakness, fever, dyspnea, syncope, headache, dizziness, GI bleed, back pain, seizure, CVA, palpatations, mental health, musculoskeletal)? @ -Differential Musculoskeletal Muscular strain, contusion, ligament sprain, fracture, arthritis, septic arthritis, bursitis, cellulitis, muscle spasm, nerve compression, DVT, arterial occlusion, herpes zoster, electrolyte abnormality, tumor.... This is not meant to be in all inclusive list EKG interpreted by me (3pts min.). @ -None X-rays interpreted by me (1pt min.). @ -None done CT interpreted by me (1pt min.). @ -None done U/S interpreted by me (1pt. min.). @ -None done What testing was considered but not performed or refused? (CT, X-rays, U/S, labs)? Why? @ -X-ray not performed due to no blunt trauma What meds were considered but not given or refused? Why? @ -None Did you discuss the management of the patient with other professionals (professionals i.e. [facility]E Arreguin, WAREHOUSE DELIVERY MANAGER, lab, RT, psych nurse, social work case manager, calibration tester, teacher, commanding officer garage, case management specialist)? Give summary @ -No Was smoking cessation discussed for >3mins.? @ -No Was critical care preformed (if so, how long)? @ -No Were there social determinants of health that impacted care today? How? (Homelessness, low income, unemployed, alcoholism, drug addiction, transportation, low edu. Level, literacy, decrease access to med. care, residential, rehab)? @ -No Was there de-escalation of care discussed even if they declined (Discuss DNR or withdrawal of care, Hospice)? DNR status @ -No What co-morbidities impacted this encounter? (DM, HTN, Smoking, COPD, CAD, Cancer, CVA, ARF, Chemo, Hep., AIDS, mental health diagnosis, sleep apnea, morbid obesity)? @ -None Was patient admitted / discharged? Hospital course, mention meds given and route, prescriptions, significant lab abnormalities, going to OR and other pertinent info. @ -Patient was discharged. Patient was seen and evaluated for laceration of third digit of left hand. Patient is neurovascularly intact. Tetanus is up-to-date. Wound is irrigated thoroughly, skin adhesive and Steri-Strips applied and hemostasis achieved. Patient is neurovascularly intact status post procedure. Wound care discussed. Prescribed Keflex for antibacterial prophylaxis. Alarm symptoms discussed with patient and he shows understanding agrees with plan. Case discussed with my attending Dr. Cruz. Patient discharged in stable condition. Undiagnosed new problem with uncertain prognosis? @ -No Drug Therapy requiring intensive monitoring for toxicity (Heparin, Nitro, Insulin, Cardizem)? @ -No Were any procedures done? @ -Yes, wound irrigated thoroughly and skin adhesive/Steri-Strips applied Diagnosis/symptom? @ -Laceration of finger of left hand Acute, or Chronic, or Acute on Chronic? @ -Acute Uncomplicated (without systemic symptoms) or Complicated (systemic symptoms)? @ -Uncomplicated Side effects of treatment? @ -No Exacerbation, Progression, or Severe Exacerbation? @ -No Poses a threat to life or bodily function? How? (Chest pain, USA, [place], pneumonia, PE, COPD, DKA, ARF, appy, cholecystitis, CVA, Diverticulitis, Homicidal, Suicidal, threat to staff... and all critical care pts) @ -No (Brittany Lam) Disposition <Luis Cardoza - Last Filed: 09/27/23 13:33> Is patient prescribed a controlled substance at d/c from ED?: No Time of Disposition: 14:42 <Brittany Lam - Last Filed: 09/27/23 16:19> Clinical Impression: Laceration of finger of left hand Disposition: HOME SELF-CARE Condition: Stable Instructions (If sedation given, give patient instructions): Finger Laceration (ED) Additional Instructions: Take Keflex as prescribed for antibacterial prophylaxis. Please return to the Emergency Department if symptoms worsen or any other concerns. Prescriptions: Cephalexin [Keflex] 500 mg PO Q12HR 5 Days #10 cap Referrals: None,Stated [Primary Care Provider] - 1-2 days
[2023-09-27 14:57] VITALS: BP 122/86; PULSE 80
== END 2023-09-27 16:54 | disposition home or self-care (01) ==
LOC: EC 13:11
DX: S61.213A Laceration without foreign body of left middle finger without damage to nail, initial encounter (principal); F12.90 Cannabis use, unspecified, uncomplicated; Z87.891 Personal history of nicotine dependence; W45.8XXA Other foreign body or object entering through skin, initial encounter
CPT/HCPCS: 12001; 99282

== ENCOUNTER 2024-08-08 12:59 | Emergency (ER) | payer OTHER ==
[2024-08-08 13:15] VITALS: RESP 18; TEMP 97.9
--- NOTE | 2024-08-08 13:28 | ED ---
Wound/Laceration HPI - General Chief Complaint: Wound/Laceration Stated Complaint: L Hand Injury Time Seen by Provider: 08/08/24 13:20 Source: patient, RN notes reviewed Mode of arrival: ambulatory Limitations: no limitations - History of Present Illness Initial Comments: Patient is a 24-year-old male who presents to the ED after cutting the tip of his left thumb off with a carpet blade about an hour and a half ago. Immediately after the injury he wrapped his thumb up with some finger tape that he had at home, continue to work for a little while, and then came here. His last tetanus shot was about 6 months ago after a similar finger injury. He he denies any blood thinners or NSAID use. He reports a pulsing pain 67/10 as well as a little bit of tingling. He denies any lightheadedness, dizziness. He does report a little bit of numbness to the thumb. - Related Data Previous Rx's Medication Instructions Recorded Cyclobenzaprine [Flexeril] 10 mg PO TID PRN #15 tab 12/06/20 Ibuprofen [Motrin] 600 mg PO Q8HR PRN #20 tab 12/06/20 Amoxicillin/Potassium Clav 1 tab PO Q12HR 1 Days #14 tab 02/26/21 [Augmentin 875-125 Tablet] Fluticasone Nasal [place] [Flonase 1 spray EA NOSTRIL DAILY #16 gm 02/26/21 Nasal [place]] Cephalexin [Keflex] 500 mg PO Q12HR 5 Days #10 cap 09/27/23 Allergies Allergy/AdvReac Type Severity Reaction Status Date / Time No Known Allergies Allergy Verified 08/08/24 13:15 Review of Systems ROS Statement: Those systems with pertinent positive or pertinent negative responses have been documented in the HPI. ROS Other: All systems not noted in ROS Statement are negative. Past Medical History Past Medical History: No Reported History History of Any Multi-Drug Resistant Organisms: None Reported Past Surgical History: No Surgical Hx Reported Past Psychological History: No Psychological Hx Reported Smoking Status: Former smoker Past Alcohol Use History: Rare Past Drug Use History: Marijuana General Exam Limitations: no limitations General appearance: alert, in no apparent distress Head exam: Present: atraumatic Eye exam: Present: normal appearance, EOMI Respiratory exam: Present: normal lung sounds bilaterally. Absent: respiratory distress, wheezes, rales, rhonchi Cardiovascular Exam: Present: regular rate, normal rhythm, normal heart sounds GI/Abdominal exam: Present: soft, normal bowel sounds. Absent: distended, tenderness Left General: Present: avulsion (tip of thumb) Hand Wrist exam: Present: other (Avulsion of thumb) Neuro motor exam: Present: wrist extension intact, thumb opposition intact, thumb IP flexion intact, thumb adduction intact, fingers 2-5 abduction intact Vascular: Present: normal capillary refill, radial pulse Course Vital Signs 08/08/24 13:12 Temperature 97.9 F Pulse Rate 80 Respiratory 18 Rate Blood Pressure 129/76 O2 Sat by Pulse 100 Oximetry Medical Decision Making - Medical Decision Making Was pt. sent in by a medical professional or institution (JAYCEE Arreguin, [employer], urgent care, hospital, or group home...) When possible be specific @ -No Did you speak to anyone other than the patient for history (EMS, parent, family, police, friend...)? What history was obtained from this source @ -No Did you review nursing and triage notes (agree or disagree)? Why? @ -I reviewed and agree with nursing and triage notes Were old charts reviewed (outside hosp., previous admission, EMS record, old EKG, old radiological studies, urgent care reports/EKG's, group home records)? Report findings @ -No old charts were reviewed Differential Diagnosis? @ -Fingertip avulsion, uncomplicated laceration, fracture, nerve injury, arterial injury, this is not meant to be an all-inclusive list. EKG interpreted by me (3pts min.). @ -None done X-rays interpreted by me (1pt min.). @ -None done CT interpreted by me (1pt min.). @ -None done U/S interpreted by me (1pt. min.). @ -None done What testing was considered but not performed or refused? (CT, X-rays, U/S, labs)? Why? @ -None What meds were considered but not given or refused? Why? @ -None Did you discuss the management of the patient with other professionals (professionals i.e. JAYCEE Arreguin, [employer], lab, RT, psych nurse, community mental health social worker, special education curriculum specialist, teacher, control officer, geriatric case manager)? Give summary @ -No Was smoking cessation discussed for >3mins.? @ -No Was critical care preformed (if so, how long)? @ -No Were there social determinants of health that impacted care today? How? (Homelessness, low income, unemployed, alcoholism, drug addiction, transportation, low edu. Level, literacy, decrease access to med. care, long term, rehab)? @ -No Was there de-escalation of care discussed even if they declined (Discuss DNR or withdrawal of care, Hospice)? DNR status @ -No What co-morbidities impacted this encounter? (DM, HTN, Smoking, COPD, CAD, Cancer, CVA, ARF, Chemo, Hep., AIDS, mental health diagnosis, sleep apnea, morbid obesity)? @ -None Was patient admitted / discharged? Hospital course, mention meds given and route, prescriptions, significant lab abnormalities, going to OR and other pertinent info. @ -Patient is a 24-year-old male who arrived to the emergency department about 1.5 hours after cutting the tip of his left thumb with a carpet blade. He states that it was a fresh blade and that this is not the first time something similar has happened. Last tetanus shot was about 6 months ago from a similar injury. Upon inspection, tip of thumb is avulsed and continuously bleeding. Gelfoam was applied, covered in 4 x 4 gauze, and tube gauze was placed. Patient's hand was elevated. Bandaging has been nonbloody in appearance for approximately 20 minutes. Patient was discharged home with instructions to follow-up with PCP in 1 to 2 days. Undiagnosed new problem with uncertain prognosis? @ -No Drug Therapy requiring intensive monitoring for toxicity (Heparin, Nitro, Insulin, Cardizem)? @ -No Were any procedures done? @ -No Diagnosis/symptom? @ -Fingertip avulsion Acute, or Chronic, or Acute on Chronic? @ -Acute Uncomplicated (without systemic symptoms) or Complicated (systemic symptoms)? @ -Uncomplicated Side effects of treatment? @ -No Exacerbation, Progression, or Severe Exacerbation? @ -No Poses a threat to life or bodily function? How? (Chest pain, [place], [place], pneumonia, PE, COPD, DKA, ARF, appy, cholecystitis, CVA, Diverticulitis, Homicidal, Suicidal, threat to staff... and all critical care pts) @ -No Disposition Clinical Impression: Fingertip avulsion Disposition: HOME SELF-CARE Condition: Stable Instructions (If sedation given, give patient instructions): Skin Avulsion (ED) Is patient prescribed a controlled substance at d/c from ED?: No Referrals: Sofia Williamson MD [Emergency Provider] - 1-2 days Time of Disposition: 14:35
[2024-08-08 14:49] VITALS: BP 124/86; PULSE 78
== END 2024-08-08 14:50 | disposition home or self-care (01) ==
LOC: EC 12:59
DX: S61.012A Laceration without foreign body of left thumb without damage to nail, initial encounter (principal); Z87.891 Personal history of nicotine dependence; W26.8XXA Contact with other sharp object(s), not elsewhere classified, initial encounter; Y92.009 Unspecified place in unspecified non-institutional (private) residence as the place of occurrence of the external cause
CPT/HCPCS: 99282